=== PATIENT | male | born 1990 | race Caucasian/White ===

== ENCOUNTER 2019-05-02 14:00 | Emergency (ER) | payer SELFPAY ==
[2019-05-02 15:12] VITALS: BP 121/75
== END 2019-05-02 15:40 | disposition left against medical advice (07) ==
LOC: UCCORT 14:00 → MERGE 14:00 → UCCORT 15:40
DX: Z53.21 Procedure and treatment not carried out due to patient leaving prior to being seen by health care provider (principal)